=== PATIENT | female | born 1940 | race Caucasian/White ===

== ENCOUNTER 2017-01-04 12:50 | Inpatient (IN) | payer MEDICARE, OTHER ==
[~2017-01-04] VITALS: Ht 162.6 cm; Wt 64.8 kg
[~2017-01-04 12:50] MED LIST: CHOL10002 PO; COLE1TAB2 PO; ESTR1.25; FISH OIL OMEGA1 EACH PO; LOSA1TAB16 PO; MERC50TA17 PO; NIAC500C3 PO; OMEP-110; PENT100C2; POTA20TA14 PO; ZALE10CA PO
[2017-01-04] MEDS ORDERED: ESTR0.6246 PO (13:39)
[2017-01-04] MEDS ORDERED: ASCO10004 PO (13:39)
[2017-01-04] MEDS ORDERED: ESZO2TAB22 PO (13:39)
[2017-01-04] MEDS ORDERED: RED600CA2 PO (13:39)
[2017-01-04] MEDS ORDERED: CA C1TAB62 PO (13:40)
[2017-01-04] MEDS ORDERED: KETOROLAC 30 MG/1 ML ONE (14:16)
[2017-01-04] MEDS ORDERED: DIAZEPAM 5 MG/ML, 2ML IV ONE (14:30)
[2017-01-04] MEDS ORDERED: KETOROLAC 30 MG/1 ML IVPush ONE (14:30)
[2017-01-04] MEDS ORDERED: SODIUM CHLORIDE FLUSH 10ML SYR IVF ONE (14:30)
[2017-01-04 14:42] LABS: HEMATOCRIT 43.9 % (34.6-47.8); HEMOGLOBIN 15.2 g/dL (11.7-16.4); WHITE BLOOD COUNT 14.6 x10^3/uL (3.4-10)
[2017-01-04 14:54] LABS: BLOOD UREA NITROGEN 15 mg/dL (7-18)
[2017-01-04 15:09] LABS: IS PT STATUS REG ER OR PRE ER? YES
[2017-01-04] MEDS ORDERED: OMNIPAQUE 350 MG/ML, 100ML BOTTLE ONE (16:11)
[2017-01-04] MEDS ORDERED: NS + 20MEQ KCL 1,000 ML IV SCH (17:08)
[2017-01-04] MEDS ORDERED: ENOXAPARIN 40 MG/0.4 ML SQ SCH (17:30)
[2017-01-04] MEDS ORDERED: ACETAMINOPHEN 325 MG TABLET PO PRN (17:30)
[2017-01-04] MEDS ORDERED: GUAIFENESIN/DM 200-20MG, 10ML UDC PO PRN (17:30)
[2017-01-04] MEDS ORDERED: DOCUSATE 100 MG CAPSULE PO PRN (17:30)
[2017-01-04] MEDS ORDERED: POLYETHYLENE GLYCOL 17 GM PACKET PO PRN (17:30)
[2017-01-04] MEDS ORDERED: ONDANSETRON 2MG/ML, 2ML IVPush PRN (17:30)
[2017-01-04] MEDS ORDERED: HYDROcodone/APAP 5/325 TABLET PO PRN (17:30)
[2017-01-04] MEDS ORDERED: morphine SULFATE 10 MG/ML, 1ML IVPush PRN (17:30)
[2017-01-04] MEDS: IBUPROFEN 600 MG TABLET PO SCH ×2 (18:52→21:41)
[2017-01-04] MEDS: COLESTIPOL 1 GM TABLET PO SCH (19:10)
[2017-01-04] MEDS ORDERED: ESZOPICLONE 2 MG HOMEMEDPO SCH (21:00)
[2017-01-04 21:58] VITALS: BP 150/79
[2017-01-05 02:12] VITALS: BP 151/85
[2017-01-05 05:22] LABS: BLOOD UREA NITROGEN 18 mg/dL (7-18)
[2017-01-05 05:41] LABS: IS PT STATUS REG ER OR PRE ER? NO
[2017-01-05 07:11] VITALS: BP 183/92
[2017-01-05] MEDS ORDERED: METOPROLOL SUCCINATE 25 MG TAB.ER.24H PO SCH (08:00)
[2017-01-05] MEDS ORDERED: MERCAPTOPURINE 50 MG TABLET PO SCH (09:00)
[2017-01-05] MEDS ORDERED: HYDROCHLOROTHIAZIDE 12.5 MG CAPSULE PO SCH (09:00)
[2017-01-05] MEDS: COLESTIPOL 1 GM TABLET PO SCH (09:00)
[2017-01-05] MEDS ORDERED: LOSARTAN 50MG TABLET PO SCH (09:00)
[2017-01-05] MEDS ORDERED: ESTROGENS CONJUGATED 0.625 MG TABLET PO SCH (09:00)
[2017-01-05] MEDS ORDERED: SENNA/DOCUSATE TABLET PO SCH (09:00)
[2017-01-05] MEDS: IBUPROFEN 600 MG TABLET PO SCH (09:23)
[2017-01-05] MEDS ORDERED: METO25TA91 PO (10:10)
[2017-01-05] MEDS ORDERED: IBUP-1222 PO (10:10)
== END 2017-01-05 13:22 | disposition home or self-care (01) | DRG 194 ==
LOC: ED 15:35 → SUATTDRO 16:46 → ED 16:47 → EDIP 16:48 → 5SO 19:50 → DCLOUNGE 01-05 12:56
PROVIDERS: ADMIT Family Medicine; ATTEND Family Medicine
DX: R09.1 Pleurisy (principal); J81.1 Chronic pulmonary edema; E44.0 Moderate protein-calorie malnutrition; K75.4 Autoimmune hepatitis; Z68.24 Body mass index [BMI] 24.0-24.9, adult; Z88.0 Allergy status to penicillin; Z88.8 Allergy status to other drugs, medicaments and biological substances; E78.5 Hyperlipidemia, unspecified; E87.6 Hypokalemia; F41.1 Generalized anxiety disorder; I10 Essential (primary) hypertension; M19.90 Unspecified osteoarthritis, unspecified site; Z66 Do not resuscitate; Z80.42 Family history of malignant neoplasm of prostate; J40 Bronchitis, not specified as acute or chronic
CPT/HCPCS: 36415; 71010; 71275; 80048; 82040; 83880; 84484; 85025; 85379; 93005; 93306; 96374; 96375; J1650; J1885; J3360; J3480; Q9967

== ENCOUNTER 2017-09-21 15:29 | Emergency (ER) | payer MEDICARE, OTHER ==
[~2017-09-21] VITALS: Ht 162.6 cm; Wt 64.8 kg
[~2017-09-21 15:29] MED LIST changes: +ASCO10004 PO; +CA C1TAB62 PO; +ESTR0.6246 PO; +ESZO2TAB22 PO; +IBUP-1222 PO; -LOSA1TAB16 PO; +LOSA1TAB19 PO; +METO25TA91 PO; +RED600CA2 PO
[2017-09-21 15:32] VITALS: BP 165/84
== END 2017-09-21 17:11 | disposition home or self-care (01) ==
LOC: ED 16:30
DX: S22.32XA Fracture of one rib, left side, initial encounter for closed fracture (principal); I10 Essential (primary) hypertension; F41.9 Anxiety disorder, unspecified; W01.198A Fall on same level from slipping, tripping and stumbling with subsequent striking against other object, initial encounter; Y93.89 Activity, other specified; Y92.480 Sidewalk as the place of occurrence of the external cause; Y99.8 Other external cause status
CPT/HCPCS: 99284